=== PATIENT | female | born 2000 | race Caucasian/White ===

== ENCOUNTER 2024-07-10 12:55 | Emergency (ER) | payer BC, SELFPAY ==
[2024-07-10 13:03] VITALS: BP 152/90
[2024-07-10 13:28] LABS: % Basophils 0.4 % (0-2); % Eosinophils 0.5 % (0-6); % Immature Granulocytes 0.2 % (0-0.5); % Lymphocytes 24.5 % (20.5-51.1); % Monocytes 7.5 % (1.7-9.3); % Neutrophils 66.9 % (42.2-75.2); Absolute Basophils 0.1 10^3/uL (0-0.2); Absolute Eosinophils 0.1 10^3/uL (0-0.7); Absolute Lymphocytes 3.1 10^3/uL (1.2-3.4); Absolute Monocytes 0.9 10^3/uL (0.1-0.6); Absolute Neutrophils 8.4 10^3/uL (1.4-6.5); Hematocrit 40.3 % (37.0-47.0); Mean Corp Hgb Conc. 34.7 g/dL (33.0-37.0); Mean Corpuscular Hgb 29.5 pg (27.0-31.0); Mean Corpuscular Volume 84.8 fL (81.0-99.0); Mean Platelet Volume 8.7 fL (7.4-10.4); Nucleated Red Blood Cells % 0 %; Platelet Count 269 10^3/uL (130-400); Red Blood Cell Count 4.75 10^6/uL (4.20-5.40); Red Cell Dist. Width 12.7 % (11.5-14.5); White Blood Cell Count 12.5 10^3/uL (4.8-10.8)
[2024-07-10 13:49] LABS: D-Dimer 0.38 ug/mlFEU (0.00-0.50)
[2024-07-10 13:52] LABS: ALT (SGPT) 22 U/L (0-35); AST (SGOT) 26 U/L (14-36); Albumin 4.7 g/dl (3.5-5.0); Alkaline Phosphatase 57 U/L (38-126); Blood Urea Nitrogen 16 mg/dl (7-17); Calcium 10.1 mg/dl (8.4-10.2); Carbon Dioxide 19 mmol/L (22-30); Chloride 108 mmol/L (98-107); Glucose 101 mg/dl (70-99); Potassium 3.9 mmol/L (3.5-5.1); Sodium 142 mmol/L (135-145); Total Bilirubin 0.3 mg/dl (0.2-1.3); Total Protein 7.5 g/dl (6.3-8.2); eGFR > 60.00
--- NOTE | 2024-07-10 14:46 | ED.GENMED ---
History of Present Illness
General
Chief Complaint: Heart Rate Problem
Time Seen by Provider: 07/10/24 14:34
History of Present Illness
History of Present Illness:
24-year-old female with history of anxiety and ADHD presents to the emergency department for evaluation of episodes of tachycardia over the past 2 days. These are typically associated with lightheadedness and paresthesias to the fingers and toes.
Noted that her heart rate was in the 170s thus prompting her to come to the emergency department. Went to urgent care and was advised to come to the ER to rule out a blood clot. Currently feels well with no symptoms
Past History
Past History
ED Past Medical History: None
ED Past Surgical History: None
Social History
Living: with family
Review of Systems
Review of Systems
Allergies reviewed?: Yes
All Other Systems: ROS reviewed and negative except as documented in HPI and ROS
Phy Exam
Physical Exam
Physical Exam:
GEN: Well appearing, NAD, WDWN
HEENT: Oral mucosa moist, no scleral icterus
Cardiac: Regular rate and rhythm, no murmurs
Lung: No respiratory distress, no tachypnea
MSK: No gross deformity or injuries
Skin: Good color, no pallor or jaundice, no rashes
Neuro: AO x3, moves all extremities freely
Psych: Calm, cooperative
Course
Orders/Labs/Results
Orders:
Orders
07/10/24 12:57
Electrocardiogram (*1) Urgent
Reason for Study: Tachycardia
EKG- Treatment ONCE
07/10/24 13:17
Complete Blood Count/With Diff Urgent
Comprehensive Metabolic Panel Urgent
D-Dimer Urgent
Abnormal Lab Results
07/10/24
13:17
WBC 12.5 H 10^3/uL
(4.8-10.8)
Absolute Neuts (auto) 8.4 H 10^3/uL
(1.4-6.5)
Absolute Monos (auto) 0.9 H 10^3/uL
(0.1-0.6)
Chloride 108 H mmol/L
(98-107)
Carbon Dioxide 19 L mmol/L
(22-30)
Glucose 101 H mg/dl
(70-99)
07/10/24 13:17
07/10/24 13:17
Vital Signs
Initial and Last Documented VS:
Initial Vital Signs
Temp Pulse Resp BP Pulse Ox
98.6 F 113 20 152/90 100
07/10/24 13:03 07/10/24 13:03 07/10/24 13:03 07/10/24 13:03 07/10/24 13:03
Last Documented Vital Signs
Temp Pulse Resp BP Pulse Ox
98.6 F 83 18 142/95 100
07/10/24 13:03 07/10/24 14:52 07/10/24 14:52 07/10/24 14:52 07/10/24 14:52
MDM/Problems Addressed
MDM/Problems Addressed:
Patient's heart rate is dramatically improved in the emergency department. The symptoms are compatible with anxiety and panic, unlikely tachyarrhythmia given the waxing waning nature of it and association with digital paresthesias. Encouraged her
to seek primary care follow-up regarding her anxiety
Comment
Comment:
EKG independently interpreted by me shows a sinus tachycardia at a rate of [address] changes concerning for ischemia
*Critical Care Note
Total Time (30-74mins, 75-104mins- exclusive of procedures): Not Applicable
ED Attending Note
-
Portions of this chart may have been created with voice recognition software.� Occasional wrong word or��sound alike� substitutions may have occurred due to the inherent limitations of voice recognition software.
Discharge Plan
Departure
Patient Disposition: Home (Routine Discharge)
Date of Disposition: 07/10/24
Time of Disposition: 14:47
Patient with high blood pressure during this ER visit?: No
Discharge Problem:
Anxiety
Instructions: Anxiety, Adult ED
Interventions
Interventions:
*Risk Screen - Suicide Last Done: 07/10/24 14:54
*General Assessment Last Done: 07/10/24 14:54
*Neglect/Abuse Screening Last Done: 07/10/24 14:54
*ED COVID-19 Vaccine History Last Done: 07/10/24 14:54
*Nursing Disposition Last Done: 07/10/24 14:56
ED- Cardiac Assessment Last Done: 07/10/24 14:54
ED- Pulmonary Assessment Last Done: 07/10/24 14:54
Discharge Date and Time
Discharge Date/Time: 07/10/24 14:58
Print Language: CYMRO
[2024-07-10 14:52] VITALS: BP 142/95
== END 2024-07-10 14:58 | disposition home or self-care (01) ==
LOC: EMR 12:55
PROVIDERS: Emergency Medicine; EMERGENCY PHYSICIAN Emergency Medicine
DX: F41.9 Anxiety disorder, unspecified (principal)
CPT/HCPCS: 99283; 80053; 85025; 85379; 93005